=== PATIENT | male | born 1960 | race Caucasian/White ===

== ENCOUNTER 2018-07-20 02:08 | Emergency (ER) | payer BC ==
[2018-07-20] MEDS ORDERED: Fentanyl 100 MCG/2 ML VIAL ONE (02:34)
[2018-07-20 02:57] LABS: #Basophils 0.1 thou/uL (0.0-0.2); #Lymphocytes 2.5 thou/uL (1.20-3.40); #Monocytes 0.6 thou/uL (0.11-0.59); #Neutrophils 7.9 thou/uL (1.40-6.50); %Basophils 0.8 % (0.0-1.0); %Eosinophils 0.3 % (0.0-10.0); %Lymphocytes 22.4 % (21.0-51.0); %Monocytes 5.6 % (0.0-10.0); %Neutrophils 70.9 % (42.0-75.0); Hemoglobin 13.9 g/dL (14.0-18.0); Mean Corpuscular Hemoglobin 31.8 pg (27.0-31.0); Mean Corpuscular Volume 90.7 fL (78.0-98.0); Mean Platelet Volume 7.1 fL (7.4-10.4); Platelet Count 182 thou/uL (130-400); RBC Distribution Width 12.2 % (11.5-14.5); Red Blood Cell (RBC) Count 4.37 mill/uL (4.70-6.10); White Blood Cell (WBC) Count 11.1 thou/uL (4.8-10.8)
[2018-07-20 03:11] LABS: ALT (SGPT) 23 U/L (8-55); AST (SGOT) 25 U/L (5-34); Albumin 4.3 g/dL (3.5-5.0); Alkaline Phosphatase 42 U/L (40-150); Anion Gap 16 mmol/L (10-20); BUN (Urea Nitrogen) 22 mg/dL (8.4-25.7); Bilirubin, Total 0.5 mg/dL (0.2-1.2); Calc. Creatinine Clearance 0 mL/min (70-130); Carbon Dioxide 23 mmol/L (22-29); Chloride 108 mmol/L (98-107); Estimated GFR-MDRD 49; Glucose 122 mg/dL (70-105); Lipase 21 U/L (8-78); Potassium 3.8 mmol/L (3.5-5.1); Protein, Total 7.3 g/dL (6.0-8.3); Sodium 143 mmol/L (136-145)
[2018-07-20] MEDS ORDERED: Ondansetron PF 4 MG/2 ML Vial ONE (03:22)
[2018-07-20 03:37] LABS: Bilirubin Negative (Negative); Blood, Urine Negative (Negative); Clarity Clear (Clear); Glucose, Urine (Dipstick) Negative (Negative); Leukocyte Negative (Negative); Nitrite Negative (Negative); Protein, Urine (Dipstick) Trace mg/dL (Neg-Trace); Specific Gravity, Urine 1.025 (1.005-1.030); Urobilinogen 0.2 mg/dL (0.2-1.0); pH, Urine 5.5 (5.0-9.0)
--- NOTE | 2018-07-20 07:59 | CT ---
CT ABDOMEN AND PELVIS WITHOUT CONTRAST STONE PROTOCOL: Date: 07/20/18 HISTORY: Left lower quadrant pain. COMPARISON: None. FINDINGS: Lung bases are clear. No pericardial effusion. There is mild left-sided hydroureteronephrosis with a 2 x 2 mm calculus at the left ureterovesical ju nction, on the bladder side of the junction. There are numerous calculi within the left renal collect ing system, including 2 mm calculi in the superior and inferior renal collecting system, and 3 mm mehreen culus in the interpolar left renal collecting system. Low grade left perinephric stranding. 2 mm calc ulus superior right renal collecting system. No right-sided hydroureteronephrosis. Hypodensity is present interpolar left kidney, not definitively a cyst, measures greater than fluid a ttenuation. Noncontrast evaluation of the spleen, liver, gallbladder, and pancreas are unremarkable. No retroperitoneal adenopathy. No dilated loops of large or small bowel. The appendix is visualized and is normal. Mild enthesopathic change of the right adductor longus tendon. Degenerative changes present at both h ips, right worse than left, with acetabular osteophyte formation and high grade chondral loss of righ t femoral head with articular surface remodeling. IMPRESSION: 1. Mild left hydroureteronephrosis due to a partially obstructive stone at left ureterovesical junct ion, on the bladder side of the junction, measuring 2 mm. Low grade left-sided hydroureteronephrosis and perinephric stranding. 2. Nonobstructive right renal calculi, as well as multiple left-sided renal calculi. 3. Hypodensity interpolar left kidney, not definitively a cyst. Nonemergent ultrasound recommended. POS: HOME
== END 2018-07-20 04:00 | disposition home or self-care (01) ==
LOC: SCSER 02:08
DX: N13.2 Hydronephrosis with renal and ureteral calculous obstruction (principal); E78.5 Hyperlipidemia, unspecified; R11.2 Nausea with vomiting, unspecified
CPT/HCPCS: 74176; 80053; 81003; 83690; 85025; 96361; 96374; 96375; J1170; J2405; J3010

== ENCOUNTER 2018-08-04 09:20 | Outpatient (CLI) | payer BC ==
--- NOTE | 2018-08-04 10:52 | CT ---
CT ABDOMEN AND PELVIS WITH IV CONTRAST 08/04/2018 CLINICAL INFORMATION: Neoplasm left kidney, calculus. Follow-up evaluation. COMPARISON: Noncontrast CT abdomen and pelvis on 07/20/2018 Technique: Multiple contiguous axial CT images are obtained through the abdomen and pelvis with IV contrast. Cor onal reformatted images are provided. FINDINGS: Lower Chest: Minimal dependent bibasilar atelectasis. Vessels: Abdominal aorta is normal in caliber. Abdomen: Portal vein:Patent Gallbladder: Within normal limits for CT imaging. Liver: A few subcentimeter too small to characterize hypodense lesions are seen in the right hepatic lobe. Pancreas: within normal limits. Spleen: within normal limits. Adrenals: within normal limits. Kidneys: A few punctate nonobstructing left renal calculi are seen. Previously seen mild left hydrone phrosis has resolved. No ureteral calculus is seen on today's examination. Previously noted left UVJ calculus is no longer visualized. Delayed images demonstrate no definite filling defect within th e renal collecting systems or in either ureter. Bowel: Normal caliber. Appendix: The appendix is visualized and normal in caliber. Peritoneum: No ascites or free air; no fluid collection. Mesentery and Retroperitoneum: No enlarged mesenteric or retroperitoneal lymph nodes. Abdominal Wall: within normal limits. Pelvis: Reproductive Organs: No pelvic masses. Pelvis within normal limits. Bladder: No calculus is seen within the urinary bladder likely to passage of the previously noted mehreen culus. Bones: There is bilateral hip osteoarthritis greater on the right. Mild degenerative changes are seen in the spine. IMPRESSION: 1. Punctate nonobstructing left renal calculi. 2. Resolution of left hydronephrosis and hydroureter, and the previously noted left UVJ calculus is n o longer seen likely due to interval passage of the tiny calculus. 3. No enhancing renal mass is seen.
[2018-08-04] MEDS ORDERED: Iopamidol 370 76% 100 ML VIAL ONE (11:45)
== END 2018-08-04 09:21 | disposition home or self-care (01) ==
LOC: SCSCT 09:20 → CT 09:21
PROVIDERS: ATTEND Urology
DX: N13.2 Hydronephrosis with renal and ureteral calculous obstruction (principal); D49.512 Neoplasm of unspecified behavior of left kidney
CPT/HCPCS: 74178; Q9967